=== PATIENT | female | born 1955 | race Caucasian/White ===

== ENCOUNTER 2021-08-17 23:47 | Emergency (ER) | payer MEDICARE, SELFPAY ==
[2021-08-17 23:44] VITALS: PULSE 0; RESP 28; O2SAT 0
--- NOTE | 2021-08-17 23:48 | PC.NURSE ---
Pt arrives with CPR in progress. Pt transitioned to our monitors. PUlse check 2349 asystole, no pulse, resumed CPR. 235 BS 51, 2352 D50 given, 235 Epi given. 2354 PUulse check asystole, no pulse noted. LOREN BAIRD CALLED TOD 2358
--- NOTE | 2021-08-17 23:58 | ED.CPR ---
HPI - CPR General Chief Complaint: Cardiac Arrest/CPR Stated Complaint: CARDIAC ARREST Time Seen by Provider: 08/17/21 23:57 History of Present Illness HPI narrative: Patient is a 65-year-old female brought in by EMS in cardiorespiratory arrest. According to EMS total downtime prior to arrival was approximately 45 minutes. Patient was given approximately 9 epis, 2 Narcan's, total of 450 mg of amiodarone, shocked 3 times prior to arrival. EMS states that initial rhythm was V. fib and that is why patient was given amiodarone and cardioverted. Patient upon arrival to the emergency room still unresponsive, no spontaneous respiration, no pulse, in asystole. Related Data Allergies Allergy/AdvReac Type Severity Reaction Status Date / Time No Known Allergies Allergy Verified 04/22/21 10:27 Review of Systems Review of Systems: ROS unobtainable: Yes unobtainable due to endotracheal tube and unobtainable due to mental status PMFSH Past Medical History Medical History Anxiety Coronary artery disease involving [place] coronary artery of [place] heart Encounter for immunization Essential hypertension Ex-smoker H/O acute myocardial infarction Mixed hyperlipidemia Social History Social History Smoking packs per day: 1 Smoking cigarettes per day: 20.0 Years smoked: 20 Smoking pack-years: 20.00 Second hand tobacco smoke exposure: Yes Smoking end date: 03/27/15 Alcohol intake: never Substance use: never Substance use type: does not use Gender identity (if verbalized by the patient): Female Exam Const: Other: Unresponsive Eyes: Other: Pupils fixed and dilated Resp: Other: No spontaneous respiration Cardio: Other: No pulse Course Vital Signs Vital signs: Vital Signs Pulse Rate 0 L 08/17/21 23:44 Respiratory Rate 28 H 08/17/21 23:44 Pulse Oximetry 0 L 08/17/21 23:44 Pulse Rate 0 L 08/17/21 23:44 Respiratory Rate 28 H 08/17/21 23:44 Pulse Oximetry 0 L 08/17/21 23:44 MDM - Cardiac Arrest/CPR MDM Narrative Medical decision making narrative: Patient in asystole upon arrival after 45 minutes of continuous cardiopulmonary resuscitation by EMS. We did check her blood sugar and it was 51 was given amp of D50, another round of epi. Patient remained in asystole. Time of 2354. Family informed. PCP, Dr. Simmons, was informed and will sign the certificate Discharge Plan Discharge Clinical Impression: Cardiac arrest Patient Disposition: Condition: Prescriptions: No Action aspirin [Adult Aspirin Regimen] 81 mg tablet,delayed release (DR/EC) 81 mg PO DAILY Qty: 90 0RF alprazolam 1 mg tablet 1 mg PO TID Qty: 200 0RF Rx Instructions: Ok to dispense 90 day supply atorvastatin 40 mg tablet 40 mg PO DAILY Qty: 90 2RF Follow-up/Referrals: Miladis Dennison MD [Primary Care Provider] - Time of Disposition: 00:04
[2021-08-18 00:08] LABS: Glucose Point of Care 51 mg/dl (65-105)
--- NOTE | 2021-08-18 00:51 | PC.NURSE ---
No answer @ [facility] at this time. Numbers called: [phone] and [phone]. Left voicemail although message did not identify as [facility]. Left generic message to please call [facility] immediately [phone]
--- NOTE | 2021-08-18 01:26 | PC.NURSE ---
Reference number [id number] pt on hold to release to home. [place] [facility] [place] And will call back with update.
--- NOTE | 2021-08-18 01:40 | PC.NURSE ---
HILDA CALLED FROM [facility] WHO STATES PT IS A POTENTIAL CANDIDATE AND THEY WILL BE REACHING OUT TO FAMILY. DO NOT RELEASE TO HOME. PT CAN BE RELEASED TO [facility] [place].
--- NOTE | 2021-08-18 02:28 | PC.NURSE ---
etcher electrolytic spoke with Eagle from [facility] who states pt is not a [facility] case. ALTAGRCAIA Solano spoke with Erika from [facility] who states she is contacting family about donation at this time.
--- NOTE | 2021-08-18 03:36 | PC.NURSE ---
AYESHA FROM [facility] SAID PT CAN BE RELEASED TO [facility] [place], FAMILY IS STILL THINKING ABOUT DONATION. WILL CALL TOMORROW AFTER SPEAKING WITH FAMILY TO SEE IF PT CAN BE RELEASED TO HOME. [facility] [employer] MADE AWARE.
--- NOTE | 2021-08-18 04:00 | PC.NURSE ---
PT TRANSPORTED [place] [facility] [place] [facility]ADE A[facility].
== END 2021-08-18 04:00 | disposition expired ==
PROVIDERS: Emergency Provider Emergency Medicine; PCP Family Medicine
DX: I46.9 Cardiac arrest, cause unspecified (principal); I25.10 Atherosclerotic heart disease of native coronary artery without angina pectoris; I10 Essential (primary) hypertension; I25.2 Old myocardial infarction; Z87.891 Personal history of nicotine dependence; E78.2 Mixed hyperlipidemia
CPT/HCPCS: 82948; 92950; 99285; J0171